=== PATIENT | male | born 1965 | race African-American/Black ===

== ENCOUNTER 2021-04-26 10:07 | Emergency (ER) | payer BC, SELFPAY ==
--- NOTE | 2021-04-26 10:15 | ED.SKABFB ---
HPI - Skin/Abscess/Foreign Bdy General Chief complaint: Skin/Abscess/Foreign Body Stated complaint: insect bite on rt thigh Time Seen by Provider: 04/26/21 10:15 Source: patient and RN notes reviewed Mode of arrival: ambulatory Limitations: no limitations History of Present Illness HPI narrative: 55-year-old male presents to the [facility] with his with concerns over redness, warmth to the anterior right thigh. Patient states that started Tuesday and has gradually gotten worse. Patient believes that he was either bitten by a spider or some type of insect. Has continued to walk and exercise and states the redness just becomes worse. Has tried Tylenol Motrin. But is concerned for infection. Denies fevers. Full range of motion of the hip, knee and ankle. No chest pain or abdominal pain. Normal gait Related Data Home Medications Medication Instructions Recorded Confirmed loratadine-pseudoephedrine ER 10 1 tablet PO DAILY 12/17/19 04/26/21 mg-240 mg tablet,extended [id number] cholecalciferol (vitamin D3) 50 50 mcg PO DAILY 03/28/20 04/26/21 mcg (2,000 unit) capsule Allergies Allergy/AdvReac Type Severity Reaction Status Date / Time coconut Allergy Severe Hives Verified 04/26/21 10:19 Penicillins Allergy Severe Hives Verified 04/26/21 10:19 Review of Systems Review of Systems: All systems reviewed & are unremarkable except as noted in HPI and below Constitutional: Constitutional: Reports no additional constitutional complaints, Denies chills and Denies fever(s) Eyes: Eyes: Reports no additional eye complaints ENT: Reports system reviewed and no additional complaints, except as documented Cardiovascular: Cardiovascular: Reports no additional cardiovascular complaints and Denies chest pain Respiratory: Respiratory: Reports no additional respiratory complaints, Denies cough, Denies dyspnea and Denies wheezing Gastrointestinal: Gastrointestinal: Reports no additional gastrointestinal complaints, Denies abdominal pain, Denies nausea and Denies vomiting Musculoskeletal: Musculoskeletal: Reports no additional musculoskeletal complaints, Denies back pain, Denies myalgias, Denies arthralgias, Denies joint swelling and Denies muscle cramps Integumentary/Breasts: Skin/Breast: Reports as per HPI and Reports erythema (Anterior right thigh) Neurologic: Reports system reviewed and no additional complaints, except as documented, Denies dizziness, Denies syncope, Denies headache(s), Denies focal weakness and Denies numbness Psychiatric: Psychiatric: Reports no additional psychiatric complaints Allergic/Immunologic: Allergic/Immunologic: Reports no additional allergic/immunologic complaints PMFSH Family History Family History Father Family history of lung cancer, Onset Age: 54 Patient's father is Mother Patient's mother is Acute myocardial infarction Other Family history of lung disease Family history of obesity Social History Social History Smoking status: Never smoker Second hand tobacco smoke exposure: No Alcohol intake: never Substance use: never Substance use type: does not use Additional living arrangements comments: [place], has 2 sons and 2 grandchildren Additional occupation/education comments: [employer] Gender identity (if verbalized by the patient): Male Comments At the time of my signature, I reviewed and agree with the nursing past medical, surgical, social, and family history. There is no relevant family history pertinent to the patient complaint. Exam Const: General: healthy appearing, no acute distress and alert Nutritional Appearance: well nourished Orientation/consciousness: patient oriented x3 Limitations: no limitations HENMT: Head: normal to inspection Eyes: Pupils: Equal, round and reactive pupils present Neck: N
[2021-04-26 10:21] VITALS: BP 133/88; PULSE 59; RESP 16; TEMP 35.9; O2SAT 100
== END 2021-04-26 10:34 | disposition home or self-care (01) ==
PROVIDERS: Emergency Provider Nurse Practitioner; PCP Internal Medicine
DX: L03.115 Cellulitis of right lower limb (principal)
CPT/HCPCS: 99213; G0463